=== PATIENT | male | born 1990 | race Caucasian/White ===

== ENCOUNTER 2023-11-28 08:15 | Emergency (ER) | payer OTHER ==
[~2023-11-28] VITALS: Ht 180.3 cm; Wt 132.4 kg
[2023-11-28 08:26] VITALS: BP 173/111; PULSE 83; RESP 20; TEMP 98.2; O2SAT 96
[2023-11-28 09:06] LABS: BASOPHILS % (AUTO) 0.4 % (0.0-2.0); EOSINOPHILS # (AUTO) 0.1 K/uL (0-0.4); EOSINOPHILS % (AUTO) 0.8 % (0.0-4.0); HEMATOCRIT 46.9 % (36-52); HEMOGLOBIN 16.4 g/dL (12.0-18.0); LYMPHOCYTES # (AUTO) 2.4 K/uL (2.0-11.5); LYMPHOCYTES % (AUTO) 30.4 % (20.5-51.1); MEAN CORPUSCULAR HEMOGLOBIN 31 pg (27-31); MEAN CORPUSCULAR HGB CONC 35 g/dL (33-37); MEAN CORPUSCULAR VOLUME 89.4 fL (80-94); MONOCYTES # (AUTO) 0.6 K/uL (0.8-1.0); MONOCYTES % (AUTO) 7.1 % (1.7-9.3); NEUTROPHILS # (AUTO) 4.9 K/uL (1.8-7.7); NEUTROPHILS % (AUTO) 61.3 % (42.2-75.2); PLATELET COUNT (AUTO) 324 K/uL (140-450); RED BLOOD CELL COUNT(AUTO) 5.25 MIL/uL (4.20-6.10)
[2023-11-28 09:27] LABS: ANION GAP 15.2 (8-16); CALCIUM 9.3 mg/dL (8.5-10.1); CARBON DIOXIDE 26.3 mmol/L (21-32); POTASSIUM 3.5 mmol/L (3.5-5.1)
[2023-11-28] MEDS ORDERED: CLONIDINE HYDROCHLORIDE 0.1 MG TAB PO ONE (10:20)
[2023-11-28] MEDS ORDERED: LOSA50TA66 PO (13:35)
[2023-11-28] MEDS ORDERED: ACET-10509 PO (13:35)
[2023-11-28] MEDS ORDERED: FAMO-90 PO (13:35)
[2023-11-28 13:56] VITALS: BP 165/104; PULSE 77; RESP 20; TEMP 98.2; O2SAT 98
== END 2023-11-28 13:55 | disposition home or self-care (01) ==
LOC: MED 08:15
DX: R07.9 Chest pain, unspecified (principal); I10 Essential (primary) hypertension; F12.90 Cannabis use, unspecified, uncomplicated; Z79.899 Other long term (current) drug therapy
CPT/HCPCS: 36415; 71045; 80048; 84484; 85025; 93005; 99285